=== PATIENT | female | born 1955 | race Caucasian/White ===

== ENCOUNTER 2017-03-10 01:32 | Observation (INO) ==
[2017-03-10] MEDS ORDERED: 0.9 % Sodium Chloride 1,000 ML IVC ONE (02:17)
[2017-03-10] MEDS ORDERED: *HR* HYDROmorphone (PF) 1 MG/ML SYRINGE IVP ONE (02:18)
[2017-03-10 02:25] LABS: Basophils # 0.1 K/mcL (0.0-0.2); Basophils % 0.5 %; Eosinophils # 0.1 K/mcL (0.0-0.6); Eosinophils % 1.3 %; Hematocrit 43.1 % (35.3-44.9); Hemoglobin 13.6 g/dL (11.5-15.4); Immature Granulocytes % 0.5 % (0-4); Lymphocytes % 29.3 %; Mean Corpuscular HGB Conc 31.6 g/dL (31.6-35.5); Mean Corpuscular Volume 88.7 fL (83.0-100.0); Mean Platelet Volume 10.5 fL (9.4-12.4); Monocytes # 0.8 K/mcL (0.0-1.3); Monocytes % 7.3 %; Neutrophils # 6.3 K/mcL (1.6-8.9); Platelet Count 201 K/mcL (140-400); Red Blood Count 4.86 M/mcL (3.82-4.97); Red Cell Distribution Width 15.3 % (11.5-14.5); Segmented Neutrophils % 61.1 %
[2017-03-10 02:31] LABS: Bilirubin,Urine Negative (Negative); Blood,Urine Large (Negative); Clarity,Urine Clear (Clear); Color,Urine Yellow (Yellow); Glucose,Urine (UA) Normal (Normal); Ketones,Urine Negative (Negative); Leukocyte Esterase,Urine Trace (Negative); Nitrite,Urine Negative (Negative); Protein,Urine Negative (Neg-Trace); Specific Gravity,Urine 1.015 (1.010-1.025); Urobilinogen,Urine Normal (Normal)
[2017-03-10 02:34] LABS: BUN/Creatinine Ratio 19 (6-26); Blood Urea Nitrogen 17 mg/dL (7-20); Calcium 9.5 mg/dL (8.6-10.8); Carbon Dioxide 17 mEq/L (19-29); Chloride 112 mEq/L (98-109); Glucose 104 mg/dL (70-99); Osmolality,Calculated 292 (280-300); Potassium 3.5 mEq/L (3.5-4.5); Sodium 140 mEq/L (136-145); eGFR For African Americans > 60 (> 60); eGFR For Non-African Americans > 60 (> 60)
[2017-03-10] MEDS ORDERED: Ketorolac 15 MG/ML VIAL IVP ONE (02:40)
--- NOTE | 2017-03-10 02:46 | Emergency Department Note ---
Disposition Clinical Impression: Kidney stone, Ureterolithiasis Hydronephrosis Qualifiers: Hydronephrosis type: with ureteral calculous obstruction Qualified Code(s): N13.2 - Hydronephrosis with renal and ureteral calculous obstruction Disposition: Still a Patient Condition: Good Referrals: NO,PCP [Primary Care Provider] - Forms: ED Satisfaction Letter General Adult HPI - General Chief complaint: ED Back Pain/Injury Stated complaint: kidney stones Time Seen by Provider: 03/10/17 02:16 Source: patient, family Mode of arrival: ambulatory Limitations: no limitations Nursing Notes Reviewed: Yes Vital Signs Reviewed: Yes - History of Present Illness HPI Narrative: 61-year-old female with recent diagnosis of left kidney stone presents for evaluation of intractable left flank pain. Patient states she was seen 2 days ago at [facility] where she had a CAT scan performed that showed a 5 mm stone. Patient was given IV Dilaudid and Toradol and a prescription of Percocet. Patient states she been taking her Percocet 5 mg every 6 hours. Patient notes that her pain has worsened severely tonight. States that the pain is in the left flank with radiation to her left groin. Patient denies any history of prior stones. Denies any chest pain reports shortness of breath related to pain. No fevers. Patient is concerned that she may not be able to pass the stone on her own. Patient was instructed to follow up with urology on Saturday of next week. Onset (ago): day(s) Location: left Pain Scale: 10 Quality: sharp Associated symptoms: Reports: denies other symptoms Treatments Prior to Arrival: other (PERCOCET) - Related Data Allergies Allergy/AdvReac Type Severity Reaction Status Date / Time codeine Allergy Vomiting Verified 03/10/17 01:37 Penicillins Allergy Hives Verified 03/10/17 01:37 shellfish derived Allergy Anaphylaxis Verified 03/10/17 01:37 Sulfa (Sulfonamide Allergy Hives Verified 03/10/17 01:37 Antibiotics) Zomepirac Allergy Anaphylaxis Verified 03/10/17 01:48 All systems ED: reviewed and negative except as stated. Constitutional: Reports: as per HPI. Denies: fever Eyes: Reports: as per HPI ENT ED: Reports: as per HPI Cardiovascular: Reports: as per HPI. Denies: chest pain Respiratory: Reports: as per HPI. Denies: dyspnea Gastrointestinal: Reports: as per HPI, abdominal pain. Denies: nausea, vomiting , diarrhea, constipation Genitourinary: Reports: as per HPI Musculoskeletal: Reports: as per HPI Integumentary: Reports: as per HPI Neurological: Reports: as per HPI Psychiatric: Reports: as per HPI Endocrine: Reports: as per HPI Hematological/Lymphatic: Reports: as per HPI Past Medical History - Past Medical History Medical history: Reports: CHF, COPD, hyperlipidemia, hypertension, kidney stones , myocardial infarction Psychiatric history: Reports: no psych history - Social History Smoking Status: Current every day smoker Smokeless Tobacco Status: No Alcohol use: Reports: none Drug use: Reports: none Physical Exam - General Limitations: no limitations General appearance: alert, anxious, other - Head Head exam: atraumatic, normocephalic, normal inspection - Eye Eye exam: Present: normal appearance, PERRL, EOMI - ENT ENT exam: normal exam, mucous membranes moist - Neck Neck exam: Present: normal inspection, trachea midline - Chest Chest inspection: Present: normal inspection, symmetric chest wall rise - Respiratory Respiratory exam: Present: other (Diffusely decreased breath sounds bilaterally) . Absent: respiratory distress - Cardiovascular Cardiovascular exam: Present: regular rate - Abdominal Exam Abdominal exam: Present: soft, Non-Tender. Absent: guarding, rebound - Extremities Exam Extremities exam: Present: normal inspection. Absent: pedal edema - Back Exam Back exam: Absent: CVA tenderness (R), CVA tenderness (L) - Neurological Exam Neurological exam: Present: alert - Skin Skin exam: Present: warm, dry, intact, normal color Course Course Narrative: Patient seen and examined. Patient will get symptomatically with IV Toradol, Dilaudid. Patient labs CBC panel and a UA. Patient also get a KUB. We will attend to obtain records from [facility] regarding the recent CAT scan. Will speak with urology regarding this patient's symptoms. - Reevaluation(s) Reevaluation #1: Patient's pain is under control with IV Dilaudid as well as Toradol. Time: 03:27 Reevaluation #2: Patient sleeping in the emergency department without any distress. Time: 05:39 - Consultations Consultation #1: Spoke with Urology, Dr. Alejandro. Will not admit the patient, but will see the patient in consult. Time: 06:20 Consultation #2: Spoke with hospitalist for admission. Time: 06:43 Vital Signs Temperature 97.3 F L 03/10/17 01:33 Pulse Rate 71 03/10/17 01:33 Respiratory Rate 18 03/10/17 01:33 Blood Pressure 173/106 03/10/17 01:33 O2 Sat by Pulse Oximetry 99 03/10/17 01:33 Temperature 97.3 F L 03/10/17 01:33 Pulse Rate 53 03/10/17 05:00 Respiratory Rate 16 03/10/17 05:00 Blood Pressure 99/61 03/10/17 05:00 O2 Sat by Pulse Oximetry 99 03/10/17 05:00 Oxygen Delivery Oxygen Delivery Room Air Medical Decision Making - MDM Narrative Medical decision making narrative: Patient presents after recent diagnosis of kidney stones. Its were reviewed from [facility] where the patient had CT of the abdomen pelvis performed which showed a 5 mm obstructing stone within the left mid ureter with resultant proximal hydroureter and moderate left hydronephrosis. Otherwise unremarkable. Patient's pain was not adequately controlled at home with Percocet 5 mg every 6. Patient denies any fevers. Patient's symptoms have resolved after IV administration in the ER. Patient's lab work shows no signs of acute kidney injury. Will talk with the urologist earlier this morning regarding further disposition and plan. Discussed the case with urology who stated they will see the patient consult. Will discuss the case with the hospitalist for admission for intractable left flank pain secondary to kidney stone. Spoke with hospitalist who accepted the patient for admission. This information was discussed with the patient who agrees with plan of care. - Lab Data Lab results reviewed: Yes I reviewed the patient's lab results. Result diagrams: 03/10/17 02:13 03/10/17 02:13 Lab Results 03/10/17 03/10/17 03/10/17 Range/Units 02:13 02:13 02:25 WBC 10.2 (4.3-11.1) K/mcL RBC 4.86 (3.82-4.97) M/mcL Hgb 13.6 (11.5-15.4) g/dL Hct 43.1 (35.3-44.9) % MCV 88.7 (83.0-100.0) fL MCH 28.0 (28.0-33.3) pg MCHC 31.6 (31.6-35.5) g/dL RDW 15.3 H (11.5-14.5) % Plt Count 201 (140-400) K/mcL MPV 10.5 (9.4-12.4) fL Immature Gran % 0.5 (0-4) % Seg Neutrophils % 61.1 % Lymphocytes % 29.3 % Monocytes % 7.3 % Eosinophils % 1.3 % Basophils % 0.5 % Neutrophils # 6.3 (1.6-8.9) K/mcL Lymphocytes # 3.0 (0.6-4.6) K/mcL Monocytes # 0.8 (0.0-1.3) K/mcL Eosinophils # 0.1 (0.0-0.6) K/mcL Basophils # 0.1 (0.0-0.2) K/mcL Sodium 140 (136-145) mEq/L Potassium 3.5 (3.5-4.5) mEq/L Chloride 112 H (98-109) mEq/L Carbon Dioxide 17 L (19-29) mEq/L BUN 17 (7-20) mg/dL Creatinine 0.90 (0.57-1.11) mg/dL Est GFR ( Amer) > 60 (> 60) Est GFR (Non-Af Amer) > 60 (> 60) BUN/Creatinine Ratio 19 (6-26) Glucose 104 H (70-99) mg/dL Calculated Osmolality 292 (280-300) Calcium 9.5 (8.6-10.8) mg/dL Urine Color Yellow (Yellow) Urine Clarity Clear (Clear) Urine pH 7.0 (5.0-8.0) pH Units Ur Specific [place] 1.015 (1.010-1.025) Urine Protein Negative (Neg-Trace) mg/dL Urine Glucose (UA) Normal (Normal) mg/dL Urine Ketones Negative (Negative) mg/dL Urine Blood Large H (Negative) Urine Nitrite Negative (Negative) Urine Bilirubin Negative (Negative) Urine Urobilinogen Normal (Normal) mg/dL Ur Leukocyte Esterase Trace H (Negative) Urine Microscopic RBC 5-15 H (0-3) per hpf Urine Microscopic WBC 3-5 H (0-3) per hpf - Radiology Data Radiology results reviewed: Yes I reviewed the patient's radiology results. KUB X-Ray 03/10/17 02:18 IMPRESSION: 1. Approximately 4 mm rounded calcification in the left lower pelvis, which could represent a distal ureteral calculus. 2. No other suspicious calculi identified. D/ / Helder Delgado MD / Helder Delgado MD Interpreting Provider: Helder Delgado MD S.Omar - Valery Situation: Demographics Background: Presenting Complaint Assessment: Vital Signs, Course and respsone to treatment, Patient/Family Expectation, Pertinant Lab Results Recommendation: Barrier(s) to disposition, Recommendation based on pending studies, treatments, or consults S.B.Alona Report Given to: Dr. Rema Rasmussen Repor Time: 06:43 Attestation Statement - Attestation Attestation: I examined this patient and my medical decision-making was reviewed with the SPRING INTERN/PA/Advanced Practice Nurse/Resident Physician. I agree with the documented findings, disposition and treatment plan as described except to the extent set forth below. Patient emergency Department left sided back pain. Onset 3 days ago. States she was seen at [facility] and diagnosed with a 5 mm kidney stone. She states she cannot tolerate the pain. She started been there twice. She was told they could not do surgery therefore so she came here requesting a procedure. On exam she is uncomfortable and crying. Plan. Records obtained show a 5 mm stone in the left mid ureter. Labs and UA pending. We will discuss with urology. Admitted to medicine with urology consult.
--- NOTE | 2017-03-10 07:58 | Urology - Consult Note ---
Date of Encounter: 03/10/17 Time of Encounter: 07:56 - Assessment and Plan (1) Ureterolithiasis Current Visit: Yes Status: Acute Assessment and plan: Patient will be scheduled today for left ureteroscopic stone extraction with laser. Continue nothing by mouth status. Urology CN:HPI Consult date: 03/10/17 Reason for consult Urology: Other (left ureteral stone) Requesting physician: Levon Wyatt History of present illness: Eun is a 61-year-old pleasant female with a very significant vascular history of 6 separate vascular stents being placed. Patient states her most recent one was 2 years ago. Patient presents an outside hospital this past with severe left-sided flank pain. She was found to have a mid ureteral stone. Patient states her pain was uncontrolled at home until she came to our emergency room where her pain could only be controlled with IV pain medication. KUB revealed distal 4 mm left ureteral stone. Patient without nausea or vomiting. No fevers. Past Med Surg Social Fam HX - Past Medical History Medical history: CHF, COPD, hyperlipidemia, hypertension, kidney stones, myocardial infarction Psychiatric history: no psych history - Social History Smoking Status: Current every day smoker Smokeless Tobacco Status: No Alcohol use: none Drug use: none Medications and Allergies Aspirin [Ecotrin] 81 mg PO DAILY 03/10/17 [History] Atorvastatin [Lipitor] 80 mg PO DAILY 03/10/17 [History] Clopidogrel [Plavix] 75 mg PO DAILY 03/10/17 [History] Omeprazole 20 mg PO DAILY 03/10/17 [History] Percocet 5-325 mg Tablet 1 tab PO Q6HR PRN 03/10/17 [History] Topiramate [Topamax] 100 mg PO BID 03/10/17 [History] Zofran ODT 4 mg PO TID PRN 03/10/17 [History] Allergies codeine Allergy (Verified 03/10/17 01:37) Vomiting Penicillins Allergy (Verified 03/10/17 01:37) Hives shellfish derived Allergy (Verified 03/10/17 01:37) Anaphylaxis Sulfa (Sulfonamide Antibiotics) Allergy (Verified 03/10/17 01:37) Hives Zomepirac Allergy (Verified 03/10/17 01:48) Anaphylaxis Review of Systems - Constitutional no chills - EENT Nose, mouth and throat: no dizziness - Cardiovascular no chest pain - Respiratory no cough - Gastrointestinal no abdominal pain - Musculoskeletal back pain Exam Initial Vital Signs Temp Pulse Resp BP Pulse Ox 97.3 F L 71 18 173/106 99 03/10/17 01:33 03/10/17 01:33 03/10/17 01:33 03/10/17 01:33 03/10/17 01:33 - General physical appearance Present: well developed - Eyes Present: PERRL - ENT Present: normal nares - Neck Present: no masses - Respiratory Present: normal respiratory effort - Cardiovascular Cardiovascular exam IM: RRR - Abdomen Abdomen: Present: soft Urology Results - Labs 03/10/17 02:13 03/10/17 02:13 Abnormal lab results RDW 15.3 % (11.5-14.5) H 03/10/17 02:13 Chloride 112 mEq/L (98-109) H 03/10/17 02:13 Carbon Dioxide 17 mEq/L (19-29) L 03/10/17 02:13 Glucose 104 mg/dL (70-99) H 03/10/17 02:13 Urine Blood Large (Negative) H 03/10/17 02:25 Ur Leukocyte Esterase Trace (Negative) H 03/10/17 02:25 Urine Microscopic RBC 5-15 per hpf (0-3) H 03/10/17 02:25 Urine Microscopic WBC 3-5 per hpf (0-3) H 03/10/17 02:25 All other labs normal. - Imaging Abdominal x-ray: image reviewed Consult Discharge Plan - Plan Referrals: NO,PCP [Primary Care Provider] -
[2017-03-10] MEDS ORDERED: Naloxone 0.4 MG/ML INJ IVP PRN ×2 (08:23→17:59)
[2017-03-10] MEDS ORDERED: *HR* OxyCODONE/APAP 5/325 TABLET PO PRN (08:30)
[2017-03-10] MEDS ORDERED: Ondansetron ODT 4 MG TAB.RAPDIS PO PRN ×2 (08:30→17:59)
[2017-03-10] MEDS ORDERED: 0.9 % Sodium Chloride 1,000 ML IVC SCH ×2 (08:30→17:59)
--- NOTE | 2017-03-10 08:30 | Event Note ---
Date of Encounter: 03/10/17 Time of Encounter: 08:24 Patient seen and examined with nurse practitioner. Briefly 61-year-old female with history of coronary artery disease status post PCI with one stent placement 5 years ago, peripheral vascular disease status post angioplasty, COPD not on home oxygen presents with obstructive uropathy she has a 4 mm left ureteral stone causing moderate left hydronephrosis. Urine analysis equivocal 3 to 5 WBC cells but negative nitrites she is afebrile without leukocytosis so will hold off antibiotics. Check your culture. She has history of C diff. Patient denies any chest pain with exertion. She can walk 2 blocks. EKG shows no ischemic changes. Patient is going for cystoscopy instant removal today. Continue aspirin Plavix. Gentle hydration. Full code
--- NOTE | 2017-03-10 08:35 | Anesthesia Evaluation PreOp ---
Date of Encounter: 03/10/17 Time of Encounter: 16:00 - Past History Planned Operation: Left ureteral stone extraction Cardiac History: [place], CHF, HTN, Hyperlipidemia, Cardiac Stent (x1 2011), Other ( PVD, 2 aortic stents, Right leg stent) Pulmonary History: Smoker, Pack/yr (1 ppd), COPD (Not on O2) INTERNET MARKETING ANALYST History: Other (Migraines) Other Medical History: Renal (Stone), GERD Anesthesia History: No Prior Anesthetic Complications, Past Anesthesia : No Alcohol Use: none Drug use: none Medications and Allergies Albuterol Neb [Proventil Neb] 2.5 mg IH Q4HR PRN 03/10/17 [History] Albuterol Sulfate [Albuterol Inhaler] 2 puff IH Q4HR PRN 03/10/17 [History] Aspirin [Ecotrin] 81 mg PO DAILY 03/10/17 [History] Atorvastatin [Lipitor] 80 mg PO DAILY 03/10/17 [History] Clopidogrel [Plavix] 75 mg PO DAILY 03/10/17 [History] Omeprazole 20 mg PO DAILY 03/10/17 [History] Ondansetron ODT [Zofran ODT] 4 mg SL Q8HR PRN 03/10/17 [History] OxyCODONE/APAP 5/325 [Percocet 5/325 MG] 1 tab PO Q6HR PRN 03/10/17 [History] Topiramate [Topamax] 100 mg PO BID 03/10/17 [History] Allergies codeine Allergy (Verified 03/10/17 01:37) Vomiting Penicillins Allergy (Verified 03/10/17 01:37) Hives shellfish derived Allergy (Verified 03/10/17 01:37) Anaphylaxis Sulfa (Sulfonamide Antibiotics) Allergy (Verified 03/10/17 01:37) Hives Zomepirac Allergy (Verified 03/10/17 01:48) Anaphylaxis - Meds/Allergy Pre-op Review Medications Reviewed: Yes Allergies Reviewed: Yes Beta Blockers on Current Med List: No Anesthesia Results - Labs 03/10/17 02:13 03/10/17 02:13 - Imaging EKG: image reviewed (SB, prolonged QT interval) Anesthesia Exam O2 Sat Height 1.5 m Height 1.5 m Weight 51.256 kg Weight 49.895 kg O2 Sat by Pulse Oximetry 98 O2 Sat by Pulse Oximetry 98 O2 Sat by Pulse Oximetry 97 O2 Sat by Pulse Oximetry 99 O2 Sat by Pulse Oximetry 99 O2 Sat by Pulse Oximetry 99 O2 Sat by Pulse Oximetry 99 Vital Signs Temp Pulse Resp BP Pulse Ox 97.3 F L 71 18 173/106 99 03/10/17 01:33 03/10/17 01:33 03/10/17 01:33 03/10/17 01:33 03/10/17 01:33 Vital Signs/O2 Sat, Most Current Temp Pulse Resp BP Pulse Ox 97.5 F L 61 16 131/74 98 03/10/17 07:21 03/10/17 07:21 03/10/17 07:21 03/10/17 07:21 03/10/17 07:21 Height: 4'11'' Weight: 113# NPO (# of Hours): > 8 hrs Pain Scale: 0 Pain Scale Used: Numeric (1 - 10) - HEENT Pupil (Motor): Pupils equal, EOMI Mallampati: II Teeth: Edentulous Denture Type: Upper: Complete, Lower: Complete Oral Opening: Greater than 3 - INTERNET MARKETING ANALYST LOC: Oriented INTERNET MARKETING ANALYST Motor: Normal RUE, Normal LUE, Normal RLE, Normal LLE, Normal Face INTERNET MARKETING ANALYST Sensory: Normal: RUE, LUE, RLE, LLE, Face - Cardiac Rhythm: Regular Murmur: None JVD: No Carotid Bruit: No - Pulmonary Breath Sounds: bilateral Clear Respiratory Effort: Symmetrical Anesthesia Assess/Plan ASA Score: 3 Modified Padmini Scale for Level of Consciousness: Cooperative, oriented, and tranquil Anesthetic Plan: General Autologous Blood: Yes Monitoring Plan: Standard Monitors Recovery Plan: PACU
[2017-03-10] MEDS ORDERED: Topiramate 100 MG TABLET PO SCH ×2 (09:00→21:00)
[2017-03-10] MEDS ORDERED: Aspirin Enteric Coated 81 MG Tablet PO SCH (09:00)
[2017-03-10] MEDS ORDERED: Aspirin Enteric Coated 325 MG Tablet PO SCH (09:00)
--- NOTE | 2017-03-10 09:11 | Internal Med History&Physical ---
Date of Encounter: 03/10/17 Time of Encounter: 08:00 Assessment and Plan (1) Kidney stone Current visit: Yes Status: Acute Assess: Patient presents with left-sided flank pain radiating to her left abdomen due to renal calculus. Plan: Urology consult completed NPO diet for uteroscopic extraction procedure later today Continue pain medications PRN IV fluids ordered judiciously (60 ml/hr) (2) Hydronephrosis Current visit: Yes Status: Acute Assess: Patient presents with left-sided flank pain radiating to her left abdomen due to renal calculus. Plan: Urology consult completed NPO diet for uteroscopic extraction procedure later today Continue pain medications PRN IV fluids ordered judiciously (60 ml/hr) Qualifiers: Hydronephrosis type: with ureteral calculous obstruction Qualified Code(s) : N13.2 - Hydronephrosis with renal and ureteral calculous obstruction (3) Ureterolithiasis Current visit: Yes Status: Acute Assess: Patient to have ureteroscopic stone extraction with laser later today Plan: NPO diet EKG ordered due to cardiac history Continuous cardiac monitoring (4) Heart disease Current visit: Yes Status: Chronic Assess: Patient presents with history of chronic heart disease. 1 stent placed in her heart, 2 stents in her aorta, 2 stents in her left leg, and 1 stent in her right leg. Plan: EKG ordered Continuous cardiac monitoring ordered Continue aspirin therapy Continue Plavix Continue Lipitor O2 ordered at 2L with titration if SpO2 <92% Monitor vital signs (5) Congestive cardiac failure Current visit: Yes Status: Chronic Assess: Patient presents with history of congestive heart failure. Patient reports her pedal edema is only occasional. Plan: EKG ordered Continuous cardiac monitoring ordered Continue aspirin therapy Continue Plavix Continue Lipitor IV fluids ordered judiciously (60 ml/hr) O2 ordered at 2L with titration if SpO2 <92% Monitor vital signs Qualifiers: Congestive heart failure type: unspecified congestive heart failure type Congestive heart failure chronicity: unspecified congestive heart failure chronicity Qualified Code(s): I50.9 - Heart failure, unspecified (6) Hypertension Current visit: Yes Status: Chronic Assess: Patient presents with a history of hypertension. Plan: Continue Lipitor IV fluids ordered judiciously (60 ml/hr) Monitor vital signs Qualifiers: Hypertension type: unspecified secondary hypertension Qualified Code(s): I15.9 - Secondary hypertension, unspecified; I15 - Secondary hypertension (7) COPD (chronic obstructive pulmonary disease) Current visit: Yes Status: Chronic Assess: Patient presents with history of COPD. States she continues to smoke 1 pack/ day. Cough present but lungs clear bilaterally in all lobes. Plan: Discussed smoking cessation with patient DuSamanthabs ordered PRN q6 Monitor SpO2 O2 ordered at 2L via nasal cannula to be titrated if SpO2 <92% Monitor vital signs Qualifiers: COPD type: unspecified COPD Qualified Code(s): J44.9 - Chronic obstructive pulmonary disease, unspecified (8) Hyperlipidemia Current visit: Yes Status: Chronic Assess: Patient presents with history of hyperlipdiemia. Plan: Continue Lipitor Lipid panel ordered Qualifiers: Hyperlipidemia type: unspecified Qualified Code(s): E78.5 - Hyperlipidemia , unspecified (9) DVT prophylaxis Current visit: Yes Status: Acute Assess: Patient placed on DVT prophylaxis due to inpatient status, history of cardiac disease, bed rest due to intractable pain related to renal calculus. Plan: Continue aspirin therapy Continue Plavix Monitor vital signs IV fluids ordered judiciously (60 ml/hr) Internal Medicine - H&P: HPI Chief complaint: Renal calculus Admitted From: Emergency Dept Plans for Post Hospital Care: Home History of present illness: Ms. Lynn is a 61 year old female who presents from the ED with a chief complaint of severe left flank pain that radiates around to her left abdomen due to renal calculus. Patient reports this is her first kidney stone. Mrs. Lynn was seen two days ago at [facility] where a CAT scan revealed a 5mm renal calculus. Patient was sent home with Percocet 5 mg q6. Patient reports that pain worsened overnight. Mrs. Lynn denies chest pain, SOB, fevers, chills, or recent illnesses. Patient has a history of CHF, COPD (current smoker of 1 pack/ day), hyperlipidemia, HTN, and cardiac issues. She states that she had 1 stent placed in her heart, 2 stents in her aorta, 2 stents in her left leg, and 1 stent in her right leg. She denies stroke or TIAs. Patient to be admitted as inpatient with consult to Urology. Dr. Alejandro saw patient and ordered EKG due to history of cardiac issues. EKG dated 03/10/17 shows sinus bradycardia with prolonged QT interval. Patient also placed NPO for procedure later today. Past Med Surg Social Fam HX - Past Medical History Source: patient Medical history: CHF, COPD, GERD, hyperlipidemia, hypertension, kidney stones, migraine, myocardial infarction Psychiatric history: no psych history - Past Surgical History Surgical History: angioplasty/stent (Patient states she has 1 stent in heart, 2 stents in the aorta, 2 stents in left leg, and 1 stent in right leg), other ( Patient reports thyroid biopsy (negative) for nodule located on left side of thyroid.) - Social History Smoking Status: Current every day smoker Packs per day: 1 pack/day Smokeless Tobacco Status: No Alcohol use: none Drug use: none Occupational status: unemployed Current living situation: Home, With Family Activity Level: Independent ambulation Recent Out of Country Travel Within the Last 8 Weeks: No Exposure or Possible Exposure to Illness During Travel: No - Family History Father Race: Family Member Ethnicity: Non- Living Status: Age at : 78 Hx Family Cardiac Disorders: Yes (HD, OR) Mother Race: Family Member Ethnicity: Non- Living Status: Age at : 76 Cause of : Cancer Hx Family Respiratory Disorders: Yes (Asthma) Hx Family Cancer: Yes Hx Family Neuromuscular Disorders: Yes (Parkinson's disease) Sister Race: Family Member Ethnicity: Non- Living Status: Still Living Hx Family Medical Disorders: No Brother Race: Family Member Ethnicity: Non- Living Status: Still Living Hx Family Medical Disorders: No Internal Medicine - H&P: Meds Aspirin [Ecotrin] 81 mg PO DAILY 03/10/17 [History] Atorvastatin [Lipitor] 80 mg PO DAILY 03/10/17 [History] Clopidogrel [Plavix] 75 mg PO DAILY 03/10/17 [History] Omeprazole 20 mg PO DAILY 03/10/17 [History] Percocet 5-325 mg Tablet 1 tab PO Q6HR PRN 03/10/17 [History] Topiramate [Topamax] 100 mg PO BID 03/10/17 [History] Zofran ODT 4 mg PO TID PRN 03/10/17 [History] Allergies codeine Allergy (Verified 03/10/17 01:37) Vomiting Penicillins Allergy (Verified 03/10/17 01:37) Hives shellfish derived Allergy (Verified 03/10/17 01:37) Anaphylaxis Sulfa (Sulfonamide Antibiotics) Allergy (Verified 03/10/17 01:37) Hives Zomepirac Allergy (Verified 03/10/17 01:48) Anaphylaxis All Systems PM: A 10-system review of systems was performed and is negative for pertinent findings except as documented above in the HPI. - Constitutional Constitutional: no chills, no fever(s), no night sweats - EENT Eyes: no change in vision, no discharge, no pain, no photophobia Ears: no ear discharge, no ear pain, no tinnitus Nose, mouth and throat: no dysphagia, no nasal discharge, no neck pain, no sore throat - Breasts Breasts: as per HPI - Cardiovascular Cardiovascular ROS IM: no chest pain, no diaphoresis, no dyspnea, no lightheadedness, no palpitations, no syncope - Respiratory Respiratory: as per HPI, cough - Gastrointestinal Gastrointestinal: as per HPI, abdominal pain, diarrhea, no hematemesis, no hematochezia, no melena, no nausea, no vomiting Additional comments: Patient reports abdominal pain on the left side radiating from left flank pain in her back due to kidney stone. Patient also reports diarrhea for the past two years. States she goes 2-4x per day. Stool ranges from very loose to watery in consistency. Patient reports she had a colonoscopy < 1 year ago. - Genitourinary Genitourinary: as per HPI, flank pain, no change in urinary stream, no dysuria, no hematuria Additional comments: Patient reports left-sided flank pain due to renal calculus. Menstruation: as per HPI - Musculoskeletal Musculoskeletal ROS IM: no numbness, no tingling - Integumentary Integumentary IM: no rash, no unusual bruising - Neurological Neurological ROS: as per HPI, tremor(s), no confusion, no convulsions, no focal weakness, no numbness, no tingling Additional comments: Patient states she has slight tremors in her hands and head. Reports she had this addressed but with no recommendations or diagnosis. - Psychiatric Psychiatric: as per HPI - Endocrine Endocrine IM: as per HPI - Hematologic/Lymphatic Hematologic/Lymphatic: no easy bruising - Allergic/Immunologic Allergic/Immunologic: as per HPI - Constitutional Vitals: Temp Pulse Resp BP Pulse Ox 97.5 F L 61 16 131/74 98 03/10/17 07:21 03/10/17 07:21 03/10/17 07:21 03/10/17 07:21 03/10/17 07:21 General appearance: Present: cooperative, mild distress, A&O X 3, pleasant, answers questions appropriately - Head Head exam: Present: atraumatic, normocephalic - Eye Eye exam: Present: PERRL, conjuntiva pink, sclera anicteric Pupils: Present: PERRL - ENT ENT exam: Present: normal exam, normal external ear exam - Neck Neck exam general surgery: Present: supple, trachea midline. Absent: lymphadenopathy - Respiratory Respiratory exam: Present: CTAB. Absent: accessory muscle use, rales, rhonchi, wheezes Additional comments: Lungs clear in all lobes bilaterally on auscultation. - Cardiovascular Cardiovascular exam: Present: RRR, +S1, +S2. Absent: diastolic murmur, gallop, rubs, systolic murmur - GI/Abdominal GI/Abdominal exam: Present: normal bowel sounds, soft, no peritoneal signs. Absent: distended, tenderness Additional comments: Patient has tenderness on left side of abdomen related to radiating pain from kidney stone. - Rectal Rectal exam: Present: deferred - Additional comments: exam deferred. - Extremities Exam Extremities exam: Present: warm, radial pulses palpable and symetrical. Absent : calf tenderness, cyanotic, pedal edema - Back Exam Back exam: Present: normal inspection Additional comments: Patient experiencing left flank pain with palpation related to kidney stone. - Neurological Exam Neurological exam: Present: CN II-XII intact, oriented X3, no focal deficits. Absent: pronater drift, facial droop, speech deficit - Psychiatric Psychiatric exam: Present: normal affect, normal mood - Skin Skin exam: Present: dry, intact Internal Med - H&P Results - Labs CBC & Chem 7: 03/10/17 02:13 03/10/17 02:13 - EKG Data EKG shows normal: sinus rhythm Rate: bradycardia - EKG Data Prior EKG available for review: no - Diagnostic Studies Abdominal x-ray Additional comments: Abdominal x-ray dated 03/10/17 shows non-obstructive bowel gas pattern. Right upper quadrant surgical clips in place. There is an approximately 4mm rounded calcification in the left lower pelvis which could represent a distal ureteral calculus. No other suspicious calculi identified. Aortoiliac stents are in place.
[2017-03-10] MEDS ORDERED: Ipratropium/Albuterol Neb 3 ML IH PRN ×2 (11:49→17:59)
[2017-03-10] MEDS ORDERED: *HR* Propofol 200 MG/20 ML VIAL IVP ONE (15:43)
[2017-03-10] MEDS ORDERED: *HR* Midazolam HCl 2 MG/2 ML VIAL ONE (15:43)
[2017-03-10] MEDS ORDERED: *HR* FentaNYL (PF) 100 MCG/2 ML VIAL ONE (15:43)
[2017-03-10] MEDS ORDERED: Ondansetron 4 MG/2 ML VIAL ONE (15:49)
[2017-03-10] MEDS ORDERED: Dexamethasone 4 MG/ML VIAL ONE (15:49)
[2017-03-10] MEDS ORDERED: Lidocaine -MPF 2% 2 ML VIAL ONE (15:49)
[2017-03-10] MEDS ORDERED: Ringers Solution, Lactated 1,000 ML ONE (16:04)
[2017-03-10] MEDS ORDERED: Clindamycin 900 MG/50 ML 900 MG/50 ML IV.SOLN IVPB ONE (16:34)
--- NOTE | 2017-03-10 17:14 | Operative Note ---
Date of procedure: 03/10/17 Pre-op diagnosis: left distal ureteral stone Post-op diagnosis: same Procedure: Left ureteroscopic laser lithotripsy of stone, left ureteroscopic basket retrieval stone fragment, left 4.8 x 26 cm ureteral stent placement Anesthesia: ALEX Surgeon: Ramirez Alejandro Specimen: Left ureteral stone Condition: stable Disposition: PACU Procedure in Detail: The patient was prepped and draped in normal sterile fashion after being placed in lithotomy position. I then inserted the cystoscope into the patient's bladder. I then cannulated the left ureter with a sensor wire. I then dilated distal ureter using a 8/10 dilation sheath I then placed the semirigid ureteroscope into the ureter. Once I encountered the stone, I used the holmium laser to fragment the stone into multiple small pieces. I then used a Nitinol tipless basket to remove all stone fragments from the patient's ureter. Once this was done, the ureter was surveyed with no further stones seen. I then back fed a 4.8x26cm ureteral stent into place, with good curl seen in the kidney and in the bladder. This was placed using fluoroscopic guidance. A string was left for easy removal. The procedure was ended.
--- NOTE | 2017-03-10 17:16 | Discharge Summary ---
Date of Encounter: 03/10/17 Time of Encounter: 17:14 - Discharge Diagnosis (1) Ureterolithiasis Priority: Primary Status: Acute - Discharge Medications Prescriptions: HYDROcodone/Acet 5/325 mg [[place] 5-325 mg] 2 tab PO Q4H PRN #15 tab PRN Reason: Pain Home Medications: Albuterol Neb [Proventil Neb] 2.5 mg IH Q4HR PRN 03/10/17 [History] Albuterol Sulfate [Albuterol Inhaler] 2 puff IH Q4HR PRN 03/10/17 [History] Aspirin [Ecotrin] 81 mg PO DAILY 03/10/17 [History] Atorvastatin [Lipitor] 80 mg PO DAILY 03/10/17 [History] Clopidogrel [Plavix] 75 mg PO DAILY 03/10/17 [History] HYDROcodone/Acet 5/325 mg [[place] 5-325 mg] 2 tab PO Q4H PRN #15 tab 03/10/17 [Rx ] Omeprazole 20 mg PO DAILY 03/10/17 [History] Ondansetron ODT [Zofran ODT] 4 mg SL Q8HR PRN 03/10/17 [History] OxyCODONE/APAP 5/325 [Percocet 5/325 MG] 1 tab PO Q6HR PRN 03/10/17 [History] Topiramate [Topamax] 100 mg PO BID 03/10/17 [History] Allergies/Adverse Reactions: Allergies codeine Allergy (Verified 03/10/17 01:37) Vomiting Penicillins Allergy (Verified 03/10/17 01:37) Hives shellfish derived Allergy (Verified 03/10/17 01:37) Anaphylaxis Sulfa (Sulfonamide Antibiotics) Allergy (Verified 03/10/17 01:37) Hives Zomepirac Allergy (Verified 03/10/17 01:48) Anaphylaxis Procedures and tests throughout hospitalization: Left ureteroscopic stone extraction on 03/10/2017 Date of admission: 03/10/17 06:50 Primary care physician: PCP ZACKARY Discharging clinician: Ramirez Alejandro Anticipated date of discharge: 03/10/17 - Patient Status Disposition: Home, Self-Care Condition: Good Functional capacity at discharge: independent ambulation Overall status at discharge: patient is progressing back to baseline - Discharge Instructions Follow Up With: ZACKARY,PCP [Primary Care Provider] - Cristobal Quiroz MD [Partnered Physician] - (2-3 weeks in [facility]) - Diet and Activity Activity: increase activity as tolerated Diet: advance to your usual diet - Hospital Course Hospital course: Ms. Lynn is a 61 year old female was brought in the hospital for observation secondary to severe left-sided flank pain. Patient was taken to the operating room later in the day and stone extraction was performed. Patient did well and was discharged home later in the evening. Time spent discussing smoking cessation with patient: 3 to 10 minutes - Time Spent with Patient Total time spent providing and/or coordinating discharge services: Less than 30 minutes Exam Initial Vital Signs Temp Pulse Resp BP Pulse Ox 97.3 F L 71 18 173/106 99 03/10/17 01:33 03/10/17 01:33 03/10/17 01:33 03/10/17 01:33 03/10/17 01:33 - General physical appearance Present: well developed - Respiratory Present: normal respiratory effort
--- NOTE | 2017-03-10 17:35 | Anesthesia Evaluation Post Op ---
Date of Encounter: 03/10/17 Time of Encounter: 17:34 - Vital Signs Vital Signs: Vital Signs/O2 Sat, Most Current Temp Pulse Resp BP Pulse Ox 97.7 F 60 12 135/86 97 03/10/17 17:15 03/10/17 17:25 03/10/17 17:25 03/10/17 17:25 03/10/17 17:25 - Lungs Lungs: Clear Ascult./Percussion - Airway Airway: Non-obstructed - Cardiovascular Regular Rate - Mental Status Mental Status: Alert & Oriented, Answers Appropriately - Pain Pain Scale: 0 Pain Scale used: Numeric (1 - 10) - Nausea Vomiting Nausea Vomiting: Not Present - Hydration Hydration: Ice chips, Has not voided - Discharge PostOp Status: Transfer Patient to floor
[2017-03-10] MEDS ORDERED: *HR* HYDROcodone/Acet 5/325 mg TABLET PO PRN (17:59)
[2017-03-10 18:19] VITALS: BP 162/88
[2017-03-11] MEDS ORDERED: Aspirin Enteric Coated 81 MG Tablet PO SCH (09:00)
--- NOTE | 2017-03-11 19:25 | Electrocardiograph Report ---
[place] [id number] Test Date: 2017-03-10 Pat Name: Eun Lynn Department: 113 Room: 3B Gender: F Clinical Research Physician: : [id number] Requested By: Lynn Jiménez Order Number: [id number] Reading MD: Kali Zamora MD Measurements Intervals Halfway Rate: 49 P: 50 [place]: 164 QRS: 24 QRSD: 86 T: 4 QT: 493 QTc: 463 Interpretive Statements SINUS BRADYCARDIA PROLONGED QT INTERVAL Electronically Signed On 03-11-2017 19:23:50 EDT by Kali Zamora MD
== END 2017-03-10 18:50 | disposition home or self-care (01) ==
LOC: 3BNU 01:32 → EMEROO 01:32 → 3BNU 07:10
PROVIDERS: ADMIT Internal Medicine; ATTEND Nurse Practitioner Family